=== PATIENT | female | born 1975 | race Caucasian/White ===

== ENCOUNTER 2016-07-25 05:28 | Day surgery (SDC) | payer OTHER ==
[2016-07-21 17:08] VITALS: BMI 22.4
--- NOTE | 2016-07-25 08:20 | HP ---
Admitting History and Physical - Admission History of Present Illness: 41 yo with hx/o ovarian cyst, amenorrhea, desiring permanent sterilization Patient with ovarian cyst noted on ultrasound that increased in size (1cm --> 2cm), described as multi-septated, + flow and a nodule; which was previously simple in nature. s/p USHA which was negative, desired surgical removal Patient incidentally found to have 7mm cystic area of endometrium, for sampling. Additionally desiring permanent sterilization. History Source: Patient Limitations to Obtaining History: No Limitations - Past Medical History Cardiovascular: Yes: HTN Gastrointestinal: Yes: GERD ...LMP: 07/14/16 ...: No ...: 2 ...Para: 2 Endocrine: Yes: Other (thyroid nodule / thyroid cyst) - Past Surgical History Additional Past Surgical History: Endoscopy cyst aspiration - Smoking History Smoking history: Former smoker Have you smoked in the past 12 months: No If you are a former smoker, when did you quit?: 15YRS AGO - Alcohol/Substance Use Hx Alcohol Use: Yes (WINE [employer]IN[employer]) - Social History History of Recent Travel: No Home Medications - Allergies Allergies/Adverse Reactions: Allergies Allergy/AdvReac Type Severity Reaction Status Date / Time No Known Drug Allergies Allergy Verified 07/25/16 08:08 butorphanol tartrate AdvReac Intermediate Verified 07/25/16 08:09 [From Stadol] - Home Medications Home Medications: Ambulatory Orders Losartan Potassium 25 mg PO DAILY 07/21/16 Family Disease History - Family Disease History Family History: Denies Review of Systems - Review of Systems Constitutional: reports: No Symptoms Neck: reports: No Symptoms Cardiovascular: reports: No Symptoms Gastrointestinal: reports: No Symptoms Genitourinary: reports: No Symptoms Neurological: reports: No Symptoms Endocrine: reports: No Symptoms Hematology/Lymphatic: reports: No Symptoms Psychiatric: reports: No Symptoms Physical Examination Vital Signs: Vital Signs Temperature 99 F 07/25/16 07:47 Pulse Rate 88 07/25/16 07:47 Respiratory Rate 18 07/25/16 07:47 Blood Pressure 141/80 07/25/16 07:47 O2 Sat by Pulse Oximetry (%) 99 07/25/16 07:47 Constitutional: Yes: Well Nourished, No Distress, Calm Cardiovascular: Yes: Regular Rate and Rhythm Respiratory: Yes: Regular, CTA Bilaterally Gastrointestinal: Yes: Normal Bowel Sounds, Soft Edema: No Neurological: Yes: Alert, Oriented Labs: USHA: 07/04/2016 CA125 - 12.0 HE4 - 42.9 Premenopausal USHA 0.52 Imaging - Results Ultrasound: Report Reviewed, Image Reviewed Assessment/Plan 41 yo with ovarian cyst, thickening of endometrium / irregular bleeding, desiring permanent sterilization for dilation and curettage, laparoscopic ovarain cystectomy, bilateral tubal ligation and all indicated procedures 1. Consents reviewed and signed. Reviewed risks of surgery including laparotomy , infection, damage to surrounding organs such as bowel, bladder, hemorrhage. 2. Preop labs reviewed 3. Ancef given preop 4. Will proceed to OR
[2016-07-25] MEDS ORDERED: ACETAMINOPHEN 325 MG TABLET (FP) PO PRN (08:26)
[2016-07-25] MEDS ORDERED: SCOPOLAMINE HYDROBROMIDE 1 PATCH PATCH.TD72 ONE (09:43)
[2016-07-25] MEDS ORDERED: MIDAZOLAM HCL 2 MG/2 ML SINGLE DOSE VIAL ONE (09:58)
[2016-07-25] MEDS ORDERED: ceFAZolin SODIUM 1 GM VIAL IVPB ONE (10:20)
[2016-07-25] MEDS ORDERED: PROPOFOL 20 ML ONE ×2 (10:36→11:15)
[2016-07-25] MEDS ORDERED: DEXAMETHASONE SOD PHOSPHATE 4 MG/1 ML VIAL ONE (10:37)
[2016-07-25] MEDS ORDERED: ROCURONIUM BROMIDE 50 MG/5 ML VIAL ONE (10:37)
[2016-07-25] MEDS ORDERED: GLYCOPYRROLATE 0.2 MG/1 ML VIAL ONE (10:38)
[2016-07-25] MEDS ORDERED: NEOSTIGMINE METHYLSULFATE 0.5 MG/ML - 10 ML MDV ONE (10:38)
[2016-07-25] MEDS ORDERED: ONDANSETRON 4 MG/2 ML VIAL IVPUSH PRN (11:41)
[2016-07-25] MEDS ORDERED: LACTATED RINGERS SOLUTION 1,000 ML IV SCH (11:45)
--- NOTE | 2016-07-25 11:50 | OP ---
Operative Note - Note: Operative Date: 07/25/16 Pre-Operative Diagnosis: 1. Right ovarain cyst; 2. Irregular menes / thickened endometrium; 3. desires permanent sterilization Operation: laparoscopic right ovarian cystectomy, dilation and curettage, bilateral salpingectomy Findings: right ovarian cyst, normal fallopian tubes bilaterally Post-Operative Diagnosis: Same as Pre-op Surgeon: Quyen Stuart Mri Special Procedures Technologist: Reyes Malin Anesthesiologist/BUSINESS TEST ANALYST: Angy Navarro Anesthesia: General Specimens Removed: 1. endometrial curetting; 2. portion of right ovarian cyst; 3. right fallopain tube; 4. left fallopian tube Estimated Blood Loss (mls): 5 Drains, Volume Out (mls): 1,000 (urine) Fluid Volume Replaced (mls): 800 Operative Report Dictated: Yes
[2016-07-25 12:18] VITALS: TEMP 98.2
[2016-07-25 14:33] VITALS: BP 143/70; PULSE 86
--- NOTE | 2016-07-26 11:12 | OP ---
DATE OF OPERATION: 07/25/2016 ATTENDING PHYSICIAN: Quyen Stuart MD PREOPERATIVE DIAGNOSES: 1. Right ovarian cyst. 2. Thickened endometrium on ultrasound 3. Irregular bleeding. 4. Voluntary sterilization. SURGERY: Laparoscopic right ovarian cystectomy. Bilateral tubal ligation. Dilation and curetting. INDICATIONS: The patient is a 41-year-old with a history of right ovarian cyst which has increased in size with thick septation and a nodule on ultrasound, with negative USHA testing. She was counseled regarding observation or surgical intervention. She desires surgical intervention. She also had a history of irregular bleeding with a thickened endometrium suspicious for endometrial hyperplasia and desiring permanent sterilization. She was counseled regarding risks, benefits, alternatives and complications of procedure including infection, bleeding, damage to surrounding organs, conversion to laparotomy. She expressed understanding and was brought to the operating room. When anesthesia was found to be adequate, the patient was prepped and draped in the normal sterile fashion. Placed in the dorsal lithotomy position using Augustus stirrups. A speculum was placed in the patient's vagina. The anterior lip of the cervix was grasped using a single-toothed tenaculum. The cervix was dilated to accommodate a size 1 curette. A gentle, sharp curettage was performed and specimen was sent to Pathology. A uterine manipulator was placed into the endometrial cavity. A Alfredo was placed. Attention was brought to the patient's abdomen which was previously prepped and draped. Attention was brought to the umbilicus where a 5-mm incision was made with a knife and a 5-mm trocar was placed under direct visualization. The abdomen was insufflated with carbon dioxide to an operating pressure of 17 mmHg. Attention was brought to the fallopian tubes and ovaries. A small ovarian cyst was noted on the right side. A 5-mm port was placed under direct visualization on the right lower quadrant. A 10-mm port was placed on the left lower quadrant under direct visualization. Attention was brought to the right ovary where a portion of the cyst was removed using the Harmonic electroscalpel. The fallopian tubes were followed to their fimbriated ends. The right fallopian tube was removed with good hemostasis and the left fallopian tube was removed with good hemostasis. Operative pressure was dropped and the surgical sites were examined and found to be hemostatic. The left lower quadrant 10-mm port site was closed using the [place] closure device and all of the instruments were removed from the patient's abdomen with removal of the pneumoperitoneum. The patient tolerated the procedure well. Estimated blood loss was 5 mL. The patient was awoken from anesthesia and brought to the recovery room in stable condition. Gustavo [id number] MTDD
--- NOTE | 2016-07-26 11:42 | PATH ---
Surgical Pathology Report Patient Name: TETE BRADLEY [facility]. Rec. #: [id number] /Age/Gender: 1975 (Age: 41) / F Account: [id number] Location: [facility] Taken: 07/25/2016 Received: 07/25/2016 Reported: 07/26/2016 Physicians: Quyen Stuart Specimen(s) Received A: ENDOMETRIAL CURETTINGS B: RIGHT OVARIAN CYST C: RIGHT FALLOPIAN TUBE D: LEFT FALLOPIAN TUBE Clinical History Ovarian cyst Final Diagnosis A. ENDOMETRIUM, CURETTAGE: FRAGMENTS OF ENDOMETRIAL POLYP. BACKGROUND FRAGMENTS OF INACTIVE APPEARING ENDOMETRIUM. FRAGMENTS OF BENIGN ENDOCERVICAL TISSUE. B. OVARY, RIGHT, CYST, CYSTECTOMY: CONSISTENT WITH BENIGN SIMPLE CYST. C. FALLOPIAN TUBE, RIGHT, SALPINGECTOMY: BENIGN FALLOPIAN TUBE WITH SMALL PARATUBAL CYSTS AND FOCAL FIBROUS ADHESIONS. D. FALLOPIAN TUBE, LEFT SALPINGECTOMY: BENIGN FALLOPIAN TUBE WITH SMALL PARATUBAL CYSTS AND FOCAL FIBRINOUHEMORRHAGIC ADHESIONS. Electronically Signed Drew Newsome M.D. Gross Description A. Received in formalin labeled "endometrial curettings" is a 1.5 x 1.5 x 0.3 cm aggregate of connolly soft tissue fragments admixed with blood-tinged mucous. The formalin is filtered and the specimen is entirely submitted in one cassette. B. Received in formalin labeled "right ovarian cyst" is a 1.4 x 1.0 x 0.2 cm connolly, irregular portion of soft tissue, consistent with a disrupted cyst. The specimen is serially sectioned and entirely submitted in one cassette. C. Received in formalin labeled "right fallopian tube" is a 4 cm in length fimbriated portion of fallopian tube. The outer surface is connolly-red. Sectioning reveals a pinpoint lumen. Tank Setter sections are submitted in 2 cassettes as follows: 1-fimbria; 2-cross sections of fallopian tube. D. Received in formalin labeled "left fallopian tube" is a 3.8 cm in length fimbriated portion of fallopian tube. The outer surface is rossi-purple. Sectioning reveals a pinpoint lumen. Tank Setter sections are submitted in 2 cassettes as follows: 1-fimbria; 2-cross sections of fallopian tube. /07/25/201607/25/2016
== END 2016-07-25 14:45 | disposition home or self-care (01) ==
LOC: JASU-SURG 05:28
PROVIDERS: ATTEND Obstetrics & Gynecology
PROC: 0UB04ZZ Excision of Right Ovary, Percutaneous Endoscopic Approach (ICD-10-PCS; principal; 2016-07-25 09:00)
PROC: 0U574ZZ Destruction of Bilateral Fallopian Tubes, Percutaneous Endoscopic Approach (ICD-10-PCS; 2016-07-25 09:00)
PROC: 0UDB7ZX Extraction of Endometrium, Via Natural or Artificial Opening, Diagnostic (ICD-10-PCS; 2016-07-25 09:00)
DX: Z30.2 Encounter for sterilization (principal); N83.201 Unspecified ovarian cyst, right side; N93.9 Abnormal uterine and vaginal bleeding, unspecified
CPT/HCPCS: 84703; 88305-TC; 94760